=== PATIENT | female | born 1995 | race Caucasian/White ===

== ENCOUNTER 2020-03-17 09:57 | Outpatient (CLI) | payer MEDICAID ==
[2020-03-17] MEDS: RINGERS SOLUTION,LACTATED 1,000 ML IV PRN ×2 (10:31→11:20)
[2020-03-17 10:38] LABS: APPEARANCE,URINE CLEAR; BILIRUBIN,URINE NEGATIVE (NEGATIVE); COLOR,URINE STRAW; GLUCOSE, URINE NEGATIVE (NEGATIVE); KETONES,URINE NEGATIVE (NEGATIVE); LEUKOCYTE ESTERASE,URINE NEGATIVE (NEGATIVE); NITRITE,URINE NEGATIVE (NEGATIVE); PROTEIN,URINE NEGATIVE (NEGATIVE); URINE SPECIFIC GRAVITY 1.005; UROBILINOGEN,URINE NEGATIVE mg/dL (<2.0)
[2020-03-17 11:07] LABS: URINE AMPHETAMINES SCREEN NEGATIVE; URINE BARBITURATES SCREEN NEGATIVE; URINE BENZODIAZEPINES SCREEN NEGATIVE; URINE COCAINE SCREEN NEGATIVE; URINE MARIJUANA (THC) SCREEN NEGATIVE; URINE METHADONE SCREEN NEGATIVE; URINE PHENCYCLIDINE SCREEN NEGATIVE
[2020-03-17] MEDS ORDERED: RINGERS SOLUTION,LACTATED 1,000 ML IV PRN (12:28)
--- NOTE | 2020-03-17 17:37 | RADIOLOGY REPORT (SQ) ---
EXAM DESCRIPTION: U/S OB LIMITED IMAGES COMPLETED DATE/TIME: 03/17/2020 5:22 pm REASON FOR STUDY: TAWNYA COMPARISON: None. TECHNIQUE: Limited transabdominal grayscale ultrasound for evaluation of specific requested obstetri dhruv parameters. LIMITATIONS: None. FINDINGS: CERVICAL LENGTH: 2.0 cm Closed. TAWNYA: 7.4 cm cm. LVP: 3.2 x 3.1 cm FHR: 139 beats per minute. PRESENTATION: Vertex PLACENTA: Anterior ANATOMY: Not assessed OTHER: EGA 39 weeks 1 day. MARY 03/23/2020 IMPRESSION: LIMITED OBSTETRICAL ULTRASOUND WITH MEASURED PARAMETERS DELINEATED ABOVE. Trimester of : Third trimester - 28 weeks to delivery. TECHNICAL DOCUMENTATION: JOB ID: [id number] 2010 [employer] All Rights Reserved Reading location - IP/workstation name: JO ANN
--- NOTE | 2020-03-17 17:50 | Non Stress Test Report ---
Non Stress Test Datetime Report Generated by CPN: 03/17/2020 17:50 DEMOGRAPHIC EGA NST: 39.1 VITAL SIGNS Temperature - NST: 98.2 Pulse - NST: 95 RESP - NST: 16 NBPSYS NST: 113 NBPDIA NST: 71 MONITORING Monitor Explained: Monitor Explained; Test Explained; Patient Verbalized Understanding Time on Monitor: 03/17/2020 16:23 Time off Monitor: 03/17/2020 16:43 NST Duration: 20 NST INTERVENTIONS NST Interventions: IV Fluids; Reposition Patient Physician Notified NST: Estrella MD BABY A: [id number] BABY A Movement : Present Contraction Frequency : Irregular FHR Baseline : 125 Accelerations : 15X15 Decelerations : None Variability : Moderate 6-25bpm NST Review: Meets Criteria for Reactive NST NST Review and Verified By : Marcello Vides RN NSDavid Results: Reactive NST REPORT Report Trigger: Send Report
== END 2020-03-17 17:43 | disposition home or self-care (01) ==
LOC: LC 09:57
PROVIDERS: ATTEND Obstetrics & Gynecology
DX: O41.03X0 Oligohydramnios, third trimester, not applicable or unspecified (principal); Z3A.39 39 weeks gestation of pregnancy
CPT/HCPCS: 59025; 76815; 80307; 81005; 84112

== ENCOUNTER 2020-03-19 16:04 | Inpatient (IN) | payer MEDICAID ==
[2020-03-19] MEDS ORDERED: DINOPROSTONE 10 MG VAGINAL INSERT.SR PV PRN (16:31)
[2020-03-19] MEDS ORDERED: RINGERS SOLUTION,LACTATED 1,000 ML IV ONE (16:32)
[2020-03-19] MEDS: RINGERS SOLUTION,LACTATED 1,000 ML IV PRN (17:16)
[2020-03-19 17:18] LABS: ABSOLUTE LYMPHOCYTES (AUTO) 1.4 10^3/uL (0.5-4.7); ABSOLUTE MONOCYTES (AUTO) 0.6 10^3/uL (0.1-1.4); ABSOLUTE NEUT (AUTO) 8.6 10^3/uL (1.7-8.2); BASOPHILS % (AUTO) 0.4 % (0-2); EOSINOPHILS % (AUTO) 0.2 % (0-6); HEMATOCRIT 36.2 % (36.0-47.0); HEMOGLOBIN 12.5 g/dL (12.0-15.5); LYMPHOCYTES % (AUTO) 13.4 % (13-45); MEAN CORPUSCULAR HEMOGLOBIN 28.4 pg (27.0-33.4); MEAN CORPUSCULAR HGB CONC 34.4 g/dL (32.0-36.0); MEAN CORPUSCULAR VOLUME 83 fl (80-97); MONOCYTES % (AUTO) 5.9 % (3-13); PLATELET COUNT 143 10^3/uL (150-450); RED BLOOD COUNT 4.39 10^6/uL (3.72-5.28); RED CELL DISTRIBUTION WIDTH 14.8 % (11.5-14.0); SEGMENTED NEUTROPHILS % (AUTO) 80.1 % (42-78); TOTAL CELLS COUNTED % (AUTO) 100 %; WHITE BLOOD COUNT 10.7 10^3/uL (4.0-10.5)
[2020-03-19 17:27] LABS: URINE AMPHETAMINES SCREEN NEGATIVE; URINE BARBITURATES SCREEN NEGATIVE; URINE BENZODIAZEPINES SCREEN NEGATIVE; URINE COCAINE SCREEN NEGATIVE; URINE MARIJUANA (THC) SCREEN NEGATIVE; URINE METHADONE SCREEN NEGATIVE; URINE PHENCYCLIDINE SCREEN NEGATIVE
--- NOTE | 2020-03-19 17:40 | Warning Signs in Babies ---
VOD Warning Signs Datetime Report Generated by CPN: 03/19/2020 17:39 VOD#608 -Warning Signs in Babies: Viewed with Parent(s)/Family (03/19/2020 17:39:Farnck Bennett RN)
[2020-03-19] MEDS ORDERED: DINOPROSTONE 10 MG VAGINAL INSERT.SR ONE (18:04)
--- NOTE | 2020-03-19 20:36 | Admission Physical ---
Datetime Report Generated by CPN: 03/19/2020 20:35 CURRENT ADMISSION Chief Complaint: Sent from OB Office for Evaluation and Treatment - Please Specify; Other Chief Complaint Other: TAWNYA at office 3.8 cm total. Indication for Induction: Oligohydramnios Admit Impression : Term, Intrauterine Admit Plan: Admit to Unit; Initiate Labor Induction Protocol ALLERGIES Medication Allergies: No Medication Allergies: No Known Allergies (03/19/2020) Latex: No Latex Allergies Food Allergies: N/A Environmental Allergies: N/A OBSTETRICAL HISTORY EDC: 03/23/2020 00:00 : 2 Para: 0 Term: 0 : 0 SAB: 1 IAB: 0 Ectopic: 0 Livin Cesareans: 0 VBACs: 0 Multiple Births: 0 Gestational Diabetes: No Rh Sensitization: No Incompetent Cervix: No BRYAN: No Infertility: No ART Treatment: No Uterine Anomaly: No IUGR: No Hx Previous C/S: No Macrosomia: No Hx Loss/Stillborn: No PIH: No Hx : No Placenta Previa/Abruption: No Depression/PP Depression: No PTL/PROM: No Post Hemorrhage: No Current Procedures: Ultrasound; NST Obstetrical History Comments: G1-Current, Oligo SEE RECORDS Alcohol: No Marijuana : No Cocaine: No Other Illicit Drugs: No Cigarettes: Never Smoker. [id number] MEDICAL HISTORY Diabetes: No Blood Transfusion: No Pulmonary Disease (Asthma, TB): No Breast Disease: No Hypertension: No Employee Training Specialist Surgery: No Heart Disease: No Hosp/Surgery: Yes Autoimmune Disorder: No Anesthetic Complications: No Kidney Disease: No Abnormal Pap Smear: No Neuro/Epilepsy: No Psychiatric Disorders: No Other Medical Diseases: No Hepatitis/Liver Disease: No Significant Family History: No Varicosities/Phlebitis: No Trauma/Violence : No Thyroid Dysfunction: No Medical History Comments: Left ankle surgery INFECTIOUS HISTORY Gonorrhea: No Genital Herpes: No Chlamydia: No Tuberculosis: No Syphilis: No Hepatitis: No HIV/AIDS Exposure: No Rash or Viral Illness: No HPV: No PHYSICAL EXAM General: Normal HEENT: Normal Neurologic: Normal Thyroid: Normal Heart: Normal Lungs: Normal Breast: Normal Back: Normal Abdomen: Normal Genitourinary Exam: Normal Extremities: Normal DTRs: Normal Pelvic Type: Adequate Vital Signs: Reviewed; Within Normal Limits VAGINAL EXAM Dilatation: 1 Effacement: 50 Station: -3 MEMBRANES Pooling: Negative Membranes: Intact FETUS A EGA: 39.3 Monitoring: External US FHR- Baseline: 130 Variability: Moderate 6-25bpm Accelerations: 15X15 Decelerations: None FHR Category: Category I Estimated Weight (gm): 3400 Presentation: Vertex PLANS FOR LABOR AND DELIVERY Labor and Delivery: Plan Pain Management: Natural; Medications; Epidural Feeding Preference: Breast Benefit of Breast Feed Discussed: Yes Circumcision: N/A INFORMED CONSENT Signature: with User ID: [email or web address]
[2020-03-20] MEDS ORDERED: ZOLPIDEM TARTRATE 5 MG TABLET ONE (00:15)
[2020-03-20] MEDS ORDERED: ZOLPIDEM TARTRATE 5 MG TABLET PO ONE (00:16)
[2020-03-20] MEDS ORDERED: OXYTOCIN/0.9 % SODIUM CHLORIDE 30 UNIT/500 ML RTUINJ IV PRN ×2 (06:00→12:19)
[2020-03-20] MEDS ORDERED: NALBUPHINE HCL INJ 10 MG/1 ML AMPULE ONE (07:45)
[2020-03-20] MEDS ORDERED: MISOPROSTOL 0.2 MG TABLET ONE (08:09)
[2020-03-20] MEDS ORDERED: OXYTOCIN 10 UNIT/ML VIAL ONE (08:09)
[2020-03-20] MEDS ORDERED: LIDOCAINE 1% INJ-PF (10 MG/ML) 30 ML SDV ONE (08:09)
[2020-03-20] MEDS ORDERED: OXYTOCIN/0.9 % SODIUM CHLORIDE 30 UNIT/500 ML RTUINJ ONE (08:10)
[2020-03-20] MEDS: RINGERS SOLUTION,LACTATED 1,000 ML IV PRN (08:19)
[2020-03-20] MEDS ORDERED: NALBUPHINE HCL INJ 10 MG/1 ML AMPULE INJ ONE (08:24)
[2020-03-20 09:26] LABS: HEMATOCRIT 35.8 % (36.0-47.0); HEMOGLOBIN 12.4 g/dL (12.0-15.5); MEAN CORPUSCULAR HEMOGLOBIN 28.2 pg (27.0-33.4); MEAN CORPUSCULAR HGB CONC 34.6 g/dL (32.0-36.0); MEAN CORPUSCULAR VOLUME 82 fl (80-97); PLATELET COUNT 136 10^3/uL (150-450); RED BLOOD COUNT 4.39 10^6/uL (3.72-5.28); RED CELL DISTRIBUTION WIDTH 14.7 % (11.5-14.0); WHITE BLOOD COUNT 13.3 10^3/uL (4.0-10.5)
[2020-03-20] MEDS ORDERED: EPHEDRINE SULFATE INJ 50 MG/1 ML AMPULE ONE (09:26)
--- NOTE | 2020-03-20 09:26 | L&D Progress Notes ---
PROGRESS NOTES Datetime Report Generated by CPN: 03/20/2020 09:25 PROGRESS NOTE Impression: Normal Progression of Labor Procedures: Sterile Vag Exam Plan: Continue Present Management; Induction; Anesthesia Consult Informed Consent Obtained: Vaginal Delivery; Induction of Labor; Risks, Benefits and Alternatives Discussed Comment: 4.5-90/-1. Desires epidural - will call once labs return. Previously unknown low platlets. Appears gestational thrombocytopenia - however no values to compare to. Anticpate VAGINAL EXAM Dilatation: 1 Effacement: 50 Station: -3 LAST VAGINAL EXAM-NURSING Nursing Exam Dilitation: 5.0 Nursing Exam Effacement: 90 Nursing Exam Station: -1 MEMBRANES Pooling: Negative Membranes: Intact FETUS A : 39.3 Estimated Weight (gm): 3400 Presentation: Vertex SIGNATURE SIGNATURE: [id number];[id number];[id number];[id number] Signature: with User ID: [email or web address]
[2020-03-20] MEDS ORDERED: ROPIVACAINE HCL 0.2% INJ/PF (2 MG/ML) 20 ML SDV ONE (09:27)
[2020-03-20] MEDS ORDERED: FENTANYL/BUPIVACAINE/NS/PF 300 MCG/150 ML RTUINJ EPI ONE (09:27)
[2020-03-20 09:48] LABS: ALBUMIN 3.5 g/dL (3.5-5.0); ALKALINE PHOSPHATASE 164 U/L (38-126); ANION GAP 10 (5-19); ASPARTATE AMINO TRANSFERASE 23 U/L (14-36); BILIRUBIN,DIRECT 0.2 mg/dL (0.0-0.4); BILIRUBIN,TOTAL 0.5 mg/dL (0.2-1.3); BLOOD UREA NITROGEN 4 mg/dL (7-20); CALCIUM 9.6 mg/dL (8.4-10.2); CARBON DIOXIDE 21 mmol/L (22-30); CHLORIDE 105 mmol/L (98-107); GLUCOSE 94 mg/dL (75-110); TOTAL PROTEIN 6.3 g/dL (6.3-8.2); URIC ACID 6.1 mg/dL (2.5-6.2)
[2020-03-20] MEDS ORDERED: (PENDING PHARMACY ID) (Pnv No.95/Ferrous Fum/Folic Ac [Prenatal Caplet] 1 EACH) PO SCH (10:00)
--- NOTE | 2020-03-20 11:01 | L&D Progress Notes ---
PROGRESS NOTES Datetime Report Generated by CPN: 03/20/2020 11:00 PROGRESS NOTE Impression: Reassuring Heart Rate Procedures: Artificial ROM; Sterile Vag Exam Plan: Continue Present Management; Induction; Anticipate Vaginal Delivery Informed Consent Obtained: Vaginal Delivery; Induction of Labor; Risks, Benefits and Alternatives Discussed Vital Signs : Reviewed; Within Normal Limits Comment: Assumed care of patient this morning. Pt comfortable w/ epidural. Pitocin infusing. GBS negative. IOl for Oligo, also has low Plts at 136k, but normal LFT's. Dr Chilel aware. VE /1, AROM of BBOW, no fluid return. Anticipate , position changes encouraged. VAGINAL EXAM Dilatation: 1 Effacement: 50 Station: -3 LAST VAGINAL EXAM-NURSING Nursing Exam Dilitation: 8.0 Nursing Exam Effacement: 90 Nursing Exam Station: -1 MEMBRANES Pooling: Negative Membranes: Ruptured FETUS A FHR - Baseline: 125 Monitoring: External US Variability: Moderate 6-25bpm Accelerations: 15X15 Decelerations: Early : 39.3 Estimated Weight (gm): 3400 Presentation: Vertex SIGNATURE SIGNATURE: [id number];[id number];[id number];27,[id number] Assignment: Nadira Chilel MD Signature: with User ID: Fox : with User ID: Fox
[2020-03-20] MEDS ORDERED: MAGNESIUM HYDROXIDE SUSP 30 ML UDCUP PO PRN (12:19)
[2020-03-20] MEDS ORDERED: DIBUCAINE 1% OINTMENT 28 GM TP PRN (12:19)
[2020-03-20] MEDS ORDERED: BENZOCAINE/MENTHOL AEROSOL SPRAY 56 ML TOP PRN (12:19)
[2020-03-20] MEDS ORDERED: DIPH/PERTUSS(ACELL)/TETANUS VAC/PF 0.5 ML SYR (>=10YO) IM PRN (12:19)
[2020-03-20] MEDS ORDERED: MEASLES,MUMPS&RUBELLA VACC/PF 0.5 ML VIAL SUBCUT PRN (12:19)
[2020-03-20] MEDS ORDERED: PROMETHAZINE HCL 25 MG TABLET PO PRN (12:19)
[2020-03-20] MEDS ORDERED: PROMETHAZINE HCL INJ 25 MG/1 ML VIAL IV PRN (12:19)
[2020-03-20] MEDS ORDERED: ZOLPIDEM TARTRATE 5 MG TABLET PO PRN (12:19)
[2020-03-20] MEDS ORDERED: NA PHOS,M-B/NA PHOS,DI-BA (ADULT) 133 ML ENEMA PR PRN (12:19)
[2020-03-20] MEDS ORDERED: DIPHENHYDRAMINE HCL 25 MG CAPSULE PO PRN (12:19)
[2020-03-20] MEDS ORDERED: GLYCERIN/WITCH HAZEL LEAF 1 EACH MED..WIPE TP PRN (12:19)
[2020-03-20] MEDS ORDERED: PSEUDOEPHEDRINE HCL 30 MG TABLET PO PRN (12:19)
[2020-03-20] MEDS ORDERED: ACETAMINOPHEN WITH CODEINE #3 TABLET PO PRN ×2 (12:19)
[2020-03-20] MEDS ORDERED: PROMETHAZINE HCL 25 MG SUPP.RECT PR PRN (12:19)
[2020-03-20] MEDS ORDERED: ACETAMINOPHEN 325 MG TABLET PO PRN (12:19)
--- NOTE | 2020-03-20 13:50 | Delivery Summary ---
Del Sum A-C Datetime Report Generated by CPN: 03/20/2020 13:49 DELIVERY PERSONNEL DELIVERY PERSONNEL: [id number] Delivery Doctor:: Magda Zimmerman CNM Labor and Delivery Nurse:: Shanta Yousif RNstop attacher Nurse:: ALFREDO Hudson Student Observers:: Marlene Branham, Student Teresa Mi, Student Cork Mixer/MANAGER INSIDE: Rupali Maldonado, PLUSH CUTTER MATERNAL INFORMATION Delivery Anesthesia: Epidural Medications After Delivery: Pitocin 30 Units in 500ml NS/D5W Delivery QBL: 75 Maternal Complications: Other Complication Details: oligohydramnios thrombocytopenia Provider Comments: of VFI, delivered SCAR, vigorous and crying, placed on pts abdoman in stable condition. Cord clamped and cut after one minute. Cord blood collected. Placenta S/C/ I, ff w/ decreased lochia. IV Pitocin. Will send placenta to path due to Oligohydramnios. Perineum intact. Apgars 9,9. QBL 75 ml. Mother and baby left in stable condition, she plans to breastfeed. Attending MD is Dr Chilel. Pt is RH negative. LABOR SUMMARY EDC: 03/23/2020 00:00 No. Babies in Womb: 1 Attempted: No Labor Anesthesia: Epidural LABOR INFORMATION Reason for Induction: Oligohydramnios Onset of Labor: 03/20/2020 09:21 Complete Dilatation: 03/20/2020 12:05 Cervical Ripening Agents: Cervidil Oxytocin: Induction Group B Beta Strep: Negative Name of Antibiotic Given: NA Steroids Given: None Reason Steroids Not Administered: Not Applicable MEMBRANES Membranes Rupture Method: Artificial Rupture of Membranes: 03/20/2020 10:42 Length of Rupture (hr): 1.62 Amniotic Fluid Color: Clear Amniotic Fluid Amount: Scant Amniotic Fluid Odor: Normal STAGES OF LABOR Stage 1 hr: 2 Stage 1 min: 44 Stage 2 hr: 0 Stage 2 min: 14 Stage 3 hr: 0 Stage 3 min: 3 Total Time in Labor hr: 3 Total Time in Labor min: 1 VAGINAL DELIVERY Episiotomy: None Laceration #1: None Laceration Extension #1: N/A Laceration Repair: Not Applicable Sharps Count Correct: Yes BABY A INFORMATION Infant Delivery Date/Time: 03/20/2020 12:19 Method of Delivery: Vaginal Nurse Controlled Delivery: No Born in Route : No : N/A Forceps: N/A Vacuum Extraction: N/A Shoulder Dystocia : No PRESENTATION/POSITION BABY A Presentation: Cephalic Cephalic Presentation: Vertex Vertex Position: Left Occipital Anterior Breech Presentation: N/A PLACENTA INFORMATION BABY A Placenta Delivery Time : 03/20/2020 12:22 Placenta Method of Delivery: Spontaneous SCORES BABY A Heart Rate 1 min: >100 bpm Resp Effort 1 min: Good Cry Reflex Irritability 1 min: Cough or Sneeze or Pulls Away Muscle Tone 1 min: Active Motion Color 1 min: Body [place], Extremities Blue SCORE 1 MIN: 9 Heart Rate 5 min: >100 bpm Resp Effort 5 min: Good Cry Reflex Irritability 5 min: Cough or Sneeze or Pulls Away Muscle Tone 5 min: Active Motion Color 5 min: Body [place], Extremities Blue SCORE 5 MIN: 9 INFANT INFORMATION BABY A Gestational Age at Delivery: 39.4 Gestational Status: Full Term- 39- 40.6 Weeks Outcome : Liveborn Condition : Stable Sex: Female IDENTIFICATION BABY A Infant Verification Date/Time: 03/20/2020 12:58 ID Band Number: [id number] Mother's Name Verified: Yes RN Verifying : MGigi Yousif, RN Additional Verifying Personnel: Jim Nash, RN WEIGHT/LENGTH BABY A Infant Birthweight (gm): 3461 Weight (lb): 7 Weight (oz): 10 Length (in): 21.00 Length (cm): 53.34 CORD INFORMATION BABY A No. Cord Vessels: 3 Nuchal Cord : N/A Cord Blood Taken: Yes-For Eval (Mom's Blood Type - or O+) ASSESSMENT BABY A Skin to Skin: Yes Skin to Skin Time (min): 60 BABY B INFORMATION : N/A SIGNATURES Assignment: Nadira Chilel MD Signature: with User ID: Fox : with User ID: Fox
--- NOTE | 2020-03-20 13:50 | Birth Certificate Data ---
Cert Data Datetime Report Generated by CPN: 03/20/2020 13:49 CERTIFICATE DATA 47a. Care: Yes (03/17/2020 10:10:Bhavya Whitney RN) 48a. Number of Prev Live Births: 0 (03/17/2020 10:10:Bhavya Whitney RN) 48b. Now Livin (03/17/2020 10:10:Bhavya Whitney RN) 48c. Live Births Now : 0 (03/17/2020 10:10:QS system process) 48e. Losses: 1 (03/17/2020 10:10:Bhavya Whitney RN) 48f. Date of Last Preg Loss: 12/14/2018 00:00 (03/17/2020 10:10:Bhavya Whitney RN) RISK FACTORS IN THIS 49a. Diabetes: No (03/17/2020 10:10:Franck Bennett RN) 49b. Hypertension: No (03/17/2020 10:10:Franck Bennett RN) 49c. Previous Births: 0 (03/17/2020 10:10:Bhavya Whitney RN) 49d. Stillborns: No (03/17/2020 10:10:Franck Bennett RN) 49d. IUGR: No (03/17/2020 10:10:Franck Bennett RN) 49e. Infertility Treatment: No (03/17/2020 10:10:Franck Bennett RN) 49f. Previous Cesareans: 0 (03/17/2020 10:10:Bhavya Whitney RN) Mother's Height 50b. Height Inches: 63 (03/20/2020 10:58:QS system process) Mother's Weight 51a. Pre- Weight (lbs): 170 (03/17/2020 10:10:Bhavya Whitney RN) 51b. Weight at Delivery (lbs): 185 (03/20/2020 10:58:QS system process) 52. Dt Last Normal Menses Began: 06/16/2019 00:00 (03/17/2020 10:10:Bhavya Whitney RN) Infections Present/Treated 53a. Gonorrhea: No (03/17/2020 10:10:Franck Bennett RN) Results this Hospital Visit : Negative (03/17/2020 10:10:Bhavya Whitney RN) 53b. Syphilis: No (03/17/2020 10:10:Franck Bennett RN) Results this Hospital Visit: NONREACTIVE (03/19/2020 17:05:QS system process) 53c. Chlamydia: No (03/17/2020 10:10:Franck Bennett RN) Results this Hospital Visit: Negative (03/17/2020 10:10:Bhavya Whitney RN) 53d. Hepatitis B: No (03/17/2020 10:10:Franck Bennett RN) Results this Hospital Visit: Negative (03/17/2020 10:10:Bhavya Whitney RN) 53h. Mother Tested for HBsAG: Yes (03/17/2020 10:10:Bhavya Whitney RN) 53i. Date Tested: 07/24/2019 00:00 (03/17/2020 10:10:Bhavya Whitney RN) 53j. Test Result: Negative (03/17/2020 10:10:Bhavya Whitney RN) Obstetric Procedures 54a, b, c. Obstetric Procedures: Ultrasound; NST (03/17/2020 10:10:Franck Bennett RN) Cigarette Smoking Cigarette Smoking: Never Smoker. [id number] (03/17/2020 10:10:Franck Bennett RN) 55a. 3 Months Before Preg - Ci (03/17/2020 10:10:Franck Bennett RN) 55a. Packs: 0 (03/17/2020 10:10:Franck Bennett RN) 55b. 1st Trimester of Preg- Ci (03/17/2020 10:10:Franck Bennett RN) 55b. Packs: 0 (03/17/2020 10:10:Franck Bennett RN) 55c. 2nd Trimester of Preg- Ci (03/17/2020 10:10:Franck Bennett RN) 55c. Packs: 0 (03/17/2020 10:10:Franck Bennett RN) 55d. 3rd Trimester of Preg- Ci (03/17/2020 10:10:Franck Bennett RN) 55d. Packs: 0 (03/17/2020 10:10:Franck Bennett RN) Onset of Labor 56a. PROM >12 Hrs: 1.62 (03/20/2020 10:42:QS system process) 56b. Precipitous Labor <3 Hrs: 3 (03/17/2020 10:10:QS system process) 56c. Prolonged Labor > 20 Hrs: 3 (03/17/2020 10:10:QS system process) 57a. Induction of Labor: Induction (03/17/2020 10:10:Shanta Yousif RN) 57a. Induction of Labor: Cervidil (03/19/2020 18:07:Franck Bennett RN) 57c. Non-Vertex Presentation A: Vertex (03/17/2020 10:10:Ines Ramon RN) 57d. Steroids - Lung Mat: None (03/17/2020 10:10:Shanta Yousif RN) 57d. Steroids - Lung Mat: Not Applicable (03/17/2020 10:10:Shanta Yousif RN) 57f. Mat [place] or Temp >100.4: 98.6 (03/17/2020 10:10:Shanta Yousif RN) 57g. Moderate/Heavy Meconium: Clear (03/20/2020 10:42:Shanta Yousif RN) 57i. Epidural/Spinal Anesthesia: Epidural (03/17/2020 10:10:Shanta Yousif RN) Method of Delivery 58a. Forceps - Unsuccessful A: N/A (03/17/2020 10:10:Ines Ramon RN) 58b. Vacuum - Unsuccessful A: N/A (03/17/2020 10:10:Ines Ramon RN) 58c. Presentation at 58c. Presentation at - A : Vertex (03/17/2020 10:10:Ines Ramon RN) 58c. Presentation at - A : N/A (03/17/2020 10:10:Ines Ramon RN) 58c. Presentation at - A : Cephalic (03/17/2020 10:10:Ines Ramon RN) Final Route and Method of Del 58d. Baby A Route/Delivery: Vaginal (03/20/2020 12:19:Shanta Yousif RN) 58e. Trial of Labor Attempted: No (03/17/2020 10:10:Shanta Yousif RN) 58e. Trial of Labor Attempted A: N/A (03/17/2020 10:10:Ines Ramon RN) 58e. Trial of Labor Attempted B: N/A (03/17/2020 10:10:Shanta Yousif RN) Maternal Morbidity 59b. 3rd or 4th Degree Lacs: None (03/17/2020 10:10:Magda HooperFLACA n[place]) Birthweight Baby A: 3461 (03/17/2020 10:10:Shanta Yousif RN) 60a. Pounds : 7 (03/17/2020 10:10:QS system process) 60b. Ounces: 10 (03/17/2020 10:10:QS system process) 61. GA at Delivery Baby A: 39.4 (03/17/2020 10:10:Ines Ramon RN) : Full Term- 39- 40.6 Weeks (03/17/2020 10:10:QS system process) 62a. 5 Minute Baby A: 9 (03/17/2020 10:10:QS system process)
[2020-03-20] MEDS: PRENATAL VITAMIN W DHA CAPSULE PO SCH (15:37)
[2020-03-20] MEDS: IBUPROFEN 800 MG TABLET PO SCH ×2 (15:46→22:00)
[2020-03-20] MEDS: FERROUS SULFATE 325 MG TABLET PO SCH (17:28)
[2020-03-20] MEDS: DOCUSATE SODIUM 100 MG CAPSULE PO SCH (17:28)
[2020-03-20] MEDS: FAMOTIDINE 20 MG TABLET PO SCH (22:00)
[2020-03-21] MEDS: IBUPROFEN 800 MG TABLET PO SCH ×3 (05:19→21:07)
[2020-03-21 06:00] LABS: HEMATOCRIT 31.6 % (36.0-47.0); HEMOGLOBIN 11.1 g/dL (12.0-15.5); MEAN CORPUSCULAR HEMOGLOBIN 28.9 pg (27.0-33.4); MEAN CORPUSCULAR HGB CONC 35.2 g/dL (32.0-36.0); MEAN CORPUSCULAR VOLUME 82 fl (80-97); PLATELET COUNT 129 10^3/uL (150-450); RED BLOOD COUNT 3.84 10^6/uL (3.72-5.28); RED CELL DISTRIBUTION WIDTH 14.6 % (11.5-14.0); WHITE BLOOD COUNT 10.5 10^3/uL (4.0-10.5)
[2020-03-21] MEDS ORDERED: SENNOSIDES/DOCUSATE 8.6-50 MG 1 EACH TABLET PO SCH (10:00)
[2020-03-21] MEDS ORDERED: PRENATAL VITAMIN W DHA CAPSULE PO SCH (10:00)
[2020-03-21] MEDS: DOCUSATE SODIUM 100 MG CAPSULE PO SCH ×2 (10:03→17:24)
[2020-03-21] MEDS: PRENATAL VITAMIN W DHA CAPSULE PO SCH (10:03)
[2020-03-21] MEDS: FERROUS SULFATE 325 MG TABLET PO SCH ×2 (10:03→17:24)
[2020-03-21] MEDS: FAMOTIDINE 20 MG TABLET PO SCH ×2 (10:03→21:07)
--- NOTE | 2020-03-21 10:12 | PDOC PROGRESS REPORT ---
Subjective-OB Progress Note for:: 03/21/20 - PP day #1, doing well, UOB, voiding, , O negative/ baby is O+. Needs Rhogam PP. Rubella Non-immune as well Physical Exam (OB) Vital Signs: Temp Pulse Resp BP Pulse Ox 97.8 F 84 18 116/64 99 03/21/20 07:38 03/21/20 07:38 03/21/20 07:38 03/21/20 07:38 03/21/20 07:38 Intake & Output 03/20/20 03/21/20 03/22/20 06:59 06:59 06:59 Intake Total 1000 120 Output Total 500 Balance 1000 -380 Weight 83.7 kg - General General Appearance: Appears well, Alert In distress: None - PIH/Pre-Eclampsia Clonus: Negative Headache: Absent Epigastric Pain: No Visual Changes: No - Maternal Morbidity 59. Maternal Morbidity (serious complications experinced by the mother associated with labor and delivery: None of the above - Lochia Lochia Amount: Small 10-25 ml Lochia Color: Rubra/Red - Abdomen Description: Soft Hernia Present: No Fundal Description: Firm, Midline Fundal Height: u/u - u/2 - Respiratory Respiratory Status: No respiratory distress - Abdominal Distension: No distension Tenderness: Nontender - Genitourinary Genitourinary Note: voiding - Extremities Upper extremity: Normal inspection Lower extremities: Normal inspection - Neurological Cognition: Normal Orientation: AAOx4 - Psychological Associated symptoms: Normal affect, Normal mood - Skin Skin Temperature: Warm Skin Moisture: Dry Objective-Diagnostic Laboratory: 03/21/20 05:46 03/20/20 09:02 03/21/20 05:46 WBC 10.5 RBC 3.84 Hgb 11.1 L Hct 31.6 L MCV 82 MCH 28.9 MCHC 35.2 RDW 14.6 H Plt Count 129 L Assessment and Plan(PN) - Assessment and Plan (1) Encounter for induction of labor Is this a current diagnosis for this admission?: Yes (2) Gestational thrombocytopenia Qualifiers: Trimester: third trimester Qualified Code(s): O99.113 - Other diseases of the blood and blood-forming organs and certain disorders involving the immune mechanism complicating , third trimester; D69.6 - Thrombocytopenia, unspecified Is this a current diagnosis for this admission?: Yes (3) Oligohydramnios Qualifiers: Fetus number: single or unspecified fetus Is this a current diagnosis for this admission?: Yes (4) Vaginal delivery Is this a current diagnosis for this admission?: Yes Plan:: routine PP orders, ambulation encouraged - Time Spent with Patient Time with patient: Less than 15 minutes Medications reviewed and adjusted accordingly: Yes - Disposition Anticipated Discharge Disposition: Home, Self Care Anticipated Discharge Timeframe: within 24 hours
[2020-03-22] MEDS: IBUPROFEN 800 MG TABLET PO SCH (05:07)
[2020-03-22 08:25] VITALS: BP 129/74
--- NOTE | 2020-03-22 10:05 | PDOC DISCHARGE SUMMARY ---
Impression - Admit/DC Date/PCP Admission Date/Primary Care Provider: 03/19/20 16:04 NICHOLAS GROSSMAN MD Discharge Date: 03/22/20 - PP Day #2, doing well, no complaints, O neg/ Rhogam given, rubella non-immune, needs MMR. . Hx of Gest Thrombocytopenia noted on admission. - Discharge Diagnosis (1) Encounter for induction of labor Is this a current diagnosis for this admission?: Yes (2) Gestational thrombocytopenia Is this a current diagnosis for this admission?: Yes (3) Oligohydramnios Is this a current diagnosis for this admission?: Yes (4) Vaginal delivery Is this a current diagnosis for this admission?: Yes - Additional Information Resuscitation Status: Full Code Discharge Diet: As Tolerated, Regular Discharge Activity: Activity As Tolerated, No Lifting Over 10 Pounds, Pelvic Rest Referrals: NICHOLAS GROSSMAN MD [Primary Care Provider] - Prescriptions: Ibuprofen [Motrin 800 mg Tablet] 800 mg PO Q8 #60 tablet Home Medications: Pnv No.95/Ferrous Fum/Folic AC [ Caplet] 1 each PO DAILY 03/17/20 Ibuprofen [Motrin 800 mg Tablet] 800 mg PO Q8 #60 tablet 03/22/20 HPI Reason(s) for Admission: Induction of Labor, Other - oligohydramnios, gestational thrombocytopenia Procedures: Ultrasound Intrapartum Procedure(s): Spontaneous Vaginal Delivery Hospital Course 59. Maternal Morbidity (serious complications experinced by the mother associated with labor and delivery: None of the above Results Laboratory Results: WBC 10.5 10^3/uL (4.0-10.5) 03/21/20 05:46 RBC 3.84 10^6/uL (3.72-5.28) 03/21/20 05:46 Hgb 11.1 g/dL (12.0-15.5) L 03/21/20 05:46 Hct 31.6 % (36.0-47.0) L 03/21/20 05:46 MCV 82 fl (80-97) 03/21/20 05:46 MCH 28.9 pg (27.0-33.4) 03/21/20 05:46 MCHC 35.2 g/dL (32.0-36.0) 03/21/20 05:46 RDW 14.6 % (11.5-14.0) H 03/21/20 05:46 Plt Count 129 10^3/uL (150-450) L 03/21/20 05:46 Lymph % (Auto) 13.4 % (13-45) 03/19/20 17:05 [place] % (Auto) 5.9 % (3-13) 03/19/20 17:05 Eos % (Auto) 0.2 % (0-6) 03/19/20 17:05 Baso % (Auto) 0.4 % (0-2) 03/19/20 17:05 Absolute Neuts (auto) 8.6 10^3/uL (1.7-8.2) H 03/19/20 17:05 Absolute Lymphs (auto) 1.4 10^3/uL (0.5-4.7) 03/19/20 17:05 Absolute Monos (auto) 0.6 10^3/uL (0.1-1.4) 03/19/20 17:05 Absolute Eos (auto) 0.0 10^3/uL (0.0-0.6) 03/19/20 17:05 Absolute Basos (auto) 0.0 10^3/uL (0.0-0.2) 03/19/20 17:05 Seg Neutrophils % 80.1 % (42-78) H 03/19/20 17:05 Sodium 136.0 mmol/L (137-145) L 03/20/20 09:02 Potassium 4.0 mmol/L (3.6-5.0) 03/20/20 09:02 Chloride 105 mmol/L (98-107) 03/20/20 09:02 Carbon Dioxide 21 mmol/L (22-30) L 03/20/20 09:02 Anion Gap 10 (5-19) 03/20/20 09:02 BUN 4 mg/dL (7-20) L 03/20/20 09:02 Creatinine 0.50 mg/dL (0.52-1.25) L 03/20/20 09:02 Est GFR ( Amer) > 60 (>60) 03/20/20 09:02 Est GFR (MDRD) Non-Af > 60 (>60) 03/20/20 09:02 Glucose 94 mg/dL (75-110) 03/20/20 09:02 Uric Acid 6.1 mg/dL (2.5-6.2) 03/20/20 09:02 Calcium 9.6 mg/dL (8.4-10.2) 03/20/20 09:02 Total Bilirubin 0.5 mg/dL (0.2-1.3) 03/20/20 09:02 Direct Bilirubin 0.2 mg/dL (0.0-0.4) 03/20/20 09:02 Neonat Total Bilirubin Not Reportable 03/20/20 09:02 Neonat Direct Bilirubin Not Reportable 03/20/20 09:02 Neonat Indirect Bili Not Reportable 03/20/20 09:02 AST 23 U/L (14-36) 03/20/20 09:02 ALT 9 U/L (<35) 03/20/20 09:02 Alkaline Phosphatase 164 U/L (38-126) H 03/20/20 09:02 Lactate Dehydrogenase 155 U/L (120-246) 03/20/20 09:02 Total Protein 6.3 g/dL (6.3-8.2) 03/20/20 09:02 Albumin 3.5 g/dL (3.5-5.0) 03/20/20 09:02 Urine Opiates Screen NEGATIVE 03/19/20 16:20 Urine Methadone Screen NEGATIVE 03/19/20 16:20 Ur Barbiturates Screen NEGATIVE 03/19/20 16:20 Ur Phencyclidine Scrn NEGATIVE 03/19/20 16:20 Ur Amphetamines Screen NEGATIVE 03/19/20 16:20 U Benzodiazepines Scrn NEGATIVE 03/19/20 16:20 Urine Cocaine Screen NEGATIVE 03/19/20 16:20 U Marijuana (THC) Screen NEGATIVE 03/19/20 16:20 RPR NONREACTIVE (NONREACTIVE) 03/19/20 17:05 Blood Type O NEGATIVE 03/21/20 05:46 Antibody Screen POSITIVE 03/19/20 17:05 Antibody Identification RHOGAM INDUCED ANTI-D 03/19/20 17:05 Screen NEGATIVE 03/21/20 05:46 Plan Health Concerns: bleeding precautions Plan of Treatment: d/c home, f/up with [facility] in 4 wks for PP check Time Spent: Less than 30 Minutes
[2020-03-22] MEDS: FAMOTIDINE 20 MG TABLET PO SCH (10:24)
[2020-03-22] MEDS: DOCUSATE SODIUM 100 MG CAPSULE PO SCH (10:25)
[2020-03-22] MEDS: PRENATAL VITAMIN W DHA CAPSULE PO SCH (10:25)
[2020-03-22] MEDS: FERROUS SULFATE 325 MG TABLET PO SCH (10:25)
== END 2020-03-22 13:00 | disposition home or self-care (01) | DRG 806 ==
LOC: LR 16:04 → 2S 03-20 15:10
PROVIDERS: ADMIT Obstetrics & Gynecology; ATTEND Obstetrics & Gynecology
PROC: 10E0XZZ Delivery of Products of Conception, External Approach (ICD-10-PCS; principal; 2020-03-20)
PROC: 3E0234Z Introduction of Serum, Toxoid and Vaccine into Muscle, Percutaneous Approach (ICD-10-PCS; 2020-03-21)
DX: O41.03X0 Oligohydramnios, third trimester, not applicable or unspecified (principal); O99.12 Other diseases of the blood and blood-forming organs and certain disorders involving the immune mechanism complicating childbirth; Z37.0 Single live birth; D69.6 Thrombocytopenia, unspecified; Z3A.39 39 weeks gestation of pregnancy; O26.893 Other specified pregnancy related conditions, third trimester; Z67.41 Type O blood, Rh negative
CPT/HCPCS: 1967; 36415; 80053; 80307; 83615; 84550; 85025; 85027; 85461; 86592; 86850; 86870; 86900; 86901; 88307; 94760; J2300; J2590; J2790; J2795; J3010; J3490